=== PATIENT | male | born 1985 | race Two or more races ===

== ENCOUNTER 2018-08-07 15:12 | Emergency (ER) | payer OTHER ==
[~2018-08-07] VITALS: Ht 177.8 cm; Wt 93.0 kg
[2018-08-07 15:20] VITALS: BP 105/50
[2018-08-07] MEDS ORDERED: IBUPROFEN 600 MG TABLET PO ONE (15:45)
== END 2018-08-07 16:29 | disposition home or self-care (01) ==
LOC: EMS 15:14
DX: R51 Headache (principal); F17.210 Nicotine dependence, cigarettes, uncomplicated
CPT/HCPCS: 99282; 99406

== ENCOUNTER 2019-01-01 08:45 | Emergency (ER) | payer OTHER ==
[~2019-01-01] VITALS: Ht 175.3 cm; Wt 81.8 kg
[2019-01-01] MEDS ORDERED: KETOROLAC TROMETHAMINE 60 MG/2 ML VIAL IM ONE (11:45)
[2019-01-01 11:46] VITALS: BP 123/66
== END 2019-01-01 13:01 | disposition home or self-care (01) ==
LOC: EMS 08:46
DX: S83.91XA Sprain of unspecified site of right knee, initial encounter (principal); F17.210 Nicotine dependence, cigarettes, uncomplicated; X58.XXXA Exposure to other specified factors, initial encounter; Y93.89 Activity, other specified; Y92.89 Other specified places as the place of occurrence of the external cause; Y99.8 Other external cause status
CPT/HCPCS: 29505; 73562; 96372; 99283; 99406; J1885

== ENCOUNTER 2021-03-25 14:37 | Emergency (ER) | payer OTHER ==
[~2021-03-25] VITALS: Ht 175.3 cm; Wt 80.0 kg
[2021-03-25 14:41] VITALS: BP 131/79
[2021-03-25 15:16] LABS: COVID AG,FIA SOURCE NASOPHARYNGEAL
== END 2021-03-25 16:10 | disposition home or self-care (01) ==
LOC: EMS 14:43
DX: F17.210 Nicotine dependence, cigarettes, uncomplicated (principal); Z20.822 Contact with and (suspected) exposure to COVID-19
CPT/HCPCS: 87426; 99283; U0003

== ENCOUNTER 2024-06-04 13:13 | Emergency (ER) | payer OTHER ==
[~2024-06-04] VITALS: Ht 180.3 cm; Wt 90.9 kg
[2024-06-04 13:20] VITALS: BP 121/65; PULSE 120; RESP 18; TEMP 98.9
[2024-06-04] MEDS: IBUPROFEN 600 MG TABLET PO ONE (14:21)
[2024-06-04] MEDS: ACETAMINOPHEN 500 MG TABLET PO ONE (14:22)
[2024-06-04] MEDS: GuaiFENesin/D-METHORPHAN [SUGAR-FREE] 200-20MG/10 ML SYRUP UDCUP PO ONE (14:22)
[2024-06-04 15:03] LABS: INFLUENZA A-RTPCR,COMBO NEGATIVE (NEGATIVE); INFLUENZA B-RTPCR,COMBO NEGATIVE (NEGATIVE); RESPIRATORY SYNCYTIAL VRS-PCR NEGATIVE (NEGATIVE)
[2024-06-04 15:09] LABS: SARS COVID19 RTPCR, COMBO POSITIVE (NEGATIVE)
[2024-06-04] MEDS ORDERED: ACET-66 PO (15:30)
[2024-06-04] MEDS ORDERED: GUAIFDM PO (15:30)
[2024-06-04] MEDS ORDERED: IBUP-1554 PO (15:30)
== END 2024-06-04 15:42 | disposition home or self-care (01) ==
LOC: EMS 13:15
DX: U07.1 COVID-19 (principal); J20.9 Acute bronchitis, unspecified; J06.9 Acute upper respiratory infection, unspecified; R50.9 Fever, unspecified; R05.9 Cough, unspecified; M79.10 Myalgia, unspecified site; F17.210 Nicotine dependence, cigarettes, uncomplicated; Z79.899 Other long term (current) drug therapy
CPT/HCPCS: 99284; 0241U; Z7502; Z7610

== ENCOUNTER 2025-05-21 11:57 | Emergency (ER) | payer OTHER ==
[~2025-05-21] VITALS: Ht 175.3 cm; Wt 95.5 kg
[~2025-05-21 11:57] MED LIST: ACET-66 PO; GUAIFDM PO; IBUP-1554 PO
[2025-05-21 12:08] VITALS: BP 115/77; PULSE 86; RESP 19; TEMP 97.7; O2SAT 100
[2025-05-21] MEDS: IBUPROFEN 600 MG TABLET PO ONE (13:31)
[2025-05-21] MEDS: CEPHALEXIN MONOHYDRATE 500 MG CAPSULE PO ONE (13:31)
[2025-05-21] MEDS: DOXYCYCLINE HYCLATE 100 MG TABLET PO ONE (13:31)
[2025-05-21] MEDS: LIDOCAINE 1% 10 ML VIAL SQ ONE (13:32)
[2025-05-21] MEDS ORDERED: DOXY-354 PO (14:03)
[2025-05-21] MEDS ORDERED: CEPH-558 PO (14:03)
== END 2025-05-21 14:28 | disposition home or self-care (01) ==
LOC: EMS 11:57
DX: L02.01 Cutaneous abscess of face (principal); F17.210 Nicotine dependence, cigarettes, uncomplicated
CPT/HCPCS: 99284; 10160; J3490